=== PATIENT | male | born 1955 | race Caucasian/White ===

== ENCOUNTER 2020-04-15 11:55 | Observation (INO) ==
[2020-04-15 12:34] LABS: Basophils # 0.1 K/mcL (0.0-0.2); Basophils % 0.7 %; Eosinophils # 0.1 K/mcL (0.0-0.6); Eosinophils % 1.6 %; Hematocrit 43.4 % (37.5-50.1); Hemoglobin 14.5 g/dL (12.9-16.9); Immature Granulocytes % 0.5 % (0-4); Lymphocytes # 1.4 K/mcL (0.6-4.6); Lymphocytes % 19.6 %; Mean Corpuscular HGB Conc 33.4 g/dL (31.6-35.5); Mean Corpuscular Hemoglobin 29.8 pg (28.0-33.3); Mean Corpuscular Volume 89.1 fL (83.0-100.0); Monocytes # 0.6 K/mcL (0.0-1.3); Monocytes % 8.3 %; Neutrophils # 5.1 K/mcL (1.6-8.9); Platelet Count 232 K/mcL (140-400); Red Blood Count 4.87 M/mcL (4.19-5.50); Red Cell Distribution Width 12.5 % (11.5-14.5); Segmented Neutrophils % 69.3 %; White Blood Count 7.3 K/mcL (4.3-11.1)
[2020-04-15 12:39] LABS: INR 1.5; Prothrombin Time 17.3 Seconds (9.4-12.1)
[2020-04-15 13:02] LABS: BUN/Creatinine Ratio 16 (6-26); Blood Urea Nitrogen 42 mg/dL (8-23); Calcium 9.2 mg/dL (8.6-10.3); Carbon Dioxide 27 mEq/L (23-29); Chloride 100 mEq/L (98-107); Glucose 187 mg/dL (70-105); Lipase 52 Units/L (11-82); Osmolality,Calculated 301 (280-300); Potassium 3.5 mEq/L (3.5-5.1); Sodium 138 mEq/L (136-145); Troponin I < 0.03 ng/mL (< 0.04); eGFR For African Americans 31 (> 60); eGFR For Non-African Americans 25 (> 60)
[2020-04-15] MEDS ORDERED: Aspirin 325 MG TABLET PO ONE (14:10)
[2020-04-15] MEDS ORDERED: Naloxone 0.4 MG/ML INJ IVP PRN (14:17)
[2020-04-15] MEDS ORDERED: D5% in Water 1,000 ML IVC PRN (14:27)
[2020-04-15] MEDS ORDERED: Dextrose Gel 15 GM/37.5 ML TUBE PO PRN ×2 (14:27)
[2020-04-15] MEDS ORDERED: *HR* Dextrose 50 % in Water (Vial) 50 ML VIAL IVP PRN (14:27)
[2020-04-15 14:46] LABS: Estimated Average Glucose 232 mg/dl; Hemoglobin A1C 9.7 %
[2020-04-15] MEDS ORDERED: Perflutren Lipid Microsphere 1.3 ML in 0.9 % Sodium Chloride 8.7 ML IVP PRN (15:11)
[2020-04-15] MEDS: Insulin LISPRO 300 UNITS/3 ML VIAL SUBQ SCH (16:13)
[2020-04-15] MEDS: Insulin DETEMIR 100 UNIT/ML X5UNITS SUBQ SCH (21:44)
[2020-04-15] MEDS ORDERED: *HR* HYDROcodone/Acet 5/325 mg TABLET PO PRN (21:59)
[2020-04-16 00:54] LABS: Basophils % 0.5 %; Eosinophils # 0.1 K/mcL (0.0-0.6); Hematocrit 39.3 % (37.5-50.1); Hemoglobin 13.3 g/dL (12.9-16.9); Immature Granulocytes % 0.4 % (0-4); Lymphocytes # 1.5 K/mcL (0.6-4.6); Lymphocytes % 20.6 %; Mean Corpuscular HGB Conc 33.8 g/dL (31.6-35.5); Mean Corpuscular Volume 88.5 fL (83.0-100.0); Mean Platelet Volume 10.1 fL (9.4-12.4); Monocytes # 0.7 K/mcL (0.0-1.3); Platelet Count 208 K/mcL (140-400); Red Blood Count 4.44 M/mcL (4.19-5.50); Red Cell Distribution Width 12.4 % (11.5-14.5); Segmented Neutrophils % 68.5 %; White Blood Count 7.3 K/mcL (4.3-11.1)
[2020-04-16 01:07] LABS: Calcium 8.7 mg/dL (8.6-10.3); Chol/HDL Ratio 6.8 (0-4.9); Potassium 3.5 mEq/L (3.5-5.1)
[2020-04-16] MEDS ORDERED: Regadenoson 0.4 MG/5 ML SYRINGE IVP ONE (07:55)
[2020-04-16] MEDS ORDERED: Aspirin Enteric Coated 81 MG Tablet PO SCH (09:00)
[2020-04-16] MEDS ORDERED: amLODIPine 5 MG TABLET PO SCH (09:00)
[2020-04-16] MEDS: Insulin LISPRO 300 UNITS/3 ML VIAL SUBQ SCH ×2 (09:06→12:46)
[2020-04-16] MEDS: Insulin DETEMIR 100 UNIT/ML X5UNITS SUBQ SCH (10:26)
[2020-04-16 10:56] VITALS: BP 174/80
[2020-04-16] MEDS ORDERED: Metoprolol 100 MG TABLET PO SCH (12:00)
[2020-04-16] MEDS ORDERED: Isosorbide MONOnitrate (24 HR) 30 MG TAB.ER.24H PO SCH (14:15)
[2020-04-16] MEDS ORDERED: *HR* Rivaroxaban 15 MG TABLET PO SCH (17:00)
== END 2020-04-16 15:29 | disposition home or self-care (01) ==
LOC: 3BNU 11:55 → EMEROOARM 11:55 → SUATTDRO 14:19 → 3BNU 15:38
PROVIDERS: ADMIT Internal Medicine; ATTEND Internal Medicine

== ENCOUNTER 2021-12-07 16:54 | Inpatient (IN) ==
[2021-12-07 20:26] LABS: Hematocrit 31.2 % (37.5-50.1); Hemoglobin 10.2 g/dL (12.9-16.9); Mean Corpuscular HGB Conc 32.7 g/dL (31.6-35.5); Mean Corpuscular Hemoglobin 31.2 pg (28.0-33.3); Mean Corpuscular Volume 95.4 fL (83.0-100.0); Platelet Count 184 K/mcL (140-400); Red Blood Count 3.27 M/mcL (4.19-5.50); Red Cell Distribution Width 14.1 % (11.5-14.5); White Blood Count 7.3 K/mcL (4.3-11.1)
[2021-12-07 20:33] LABS: INR 1.1; Prothrombin Time 12.2 Seconds (9.4-12.1)
[2021-12-07 20:36] LABS: Activated Partial Thrombo Time 29.2 Seconds (26.0-36.0)
[2021-12-07 20:41] LABS: Eosinophils # 0.4 K/mcL (0.0-0.6); Lymphocytes # 1.3 K/mcL (0.6-4.6); Monocytes # 0.2 K/mcL (0.0-1.3); Neutrophils # 5.3 K/mcL (1.6-8.9)
[2021-12-07 20:48] LABS: Alanine Aminotransferase 11 Units/L (7-52); Albumin 2.8 g/dL (3.5-5.7); Albumin/Globulin Ratio 1.1 (1.1-2.2); Alkaline Phosphatase 84 Units/L (34-104); Aspartate Amino Transferase 10 Units/L (13-39); BUN/Creatinine Ratio 19 (6-26); Bilirubin,Indirect 0.3 mg/dL (0.0-1.0); Bilirubin,Total 0.3 mg/dL (0.3-1.0); Blood Urea Nitrogen 84 mg/dL (8-23); Carbon Dioxide 21 mEq/L (23-29); Chloride 107 mEq/L (98-107); Globulin 2.5 g/dL (2.4-3.5); Glucose 358 mg/dL (70-105); Osmolality,Calculated 324 (280-300); Potassium 4.5 mEq/L (3.5-5.1); Sodium 137 mEq/L (136-145); Total Protein 5.3 g/dL (6.4-8.9)
[2021-12-07 20:49] LABS: Troponin I < 0.03 ng/mL (< 0.04)
[2021-12-07] MEDS ORDERED: Furosemide 40 MG/4 ML VIAL IVP ONE (23:55)
[2021-12-08] MEDS ORDERED: Naloxone 0.4 MG/ML INJ IVP PRN (00:53)
[2021-12-08] MEDS ORDERED: Melatonin 3 MG TABLET PO PRN (00:53)
[2021-12-08 02:25] LABS: Basophils # 0.1 K/mcL (0.0-0.2); Basophils % 0.7 %; Eosinophils # 0.2 K/mcL (0.0-0.6); Eosinophils % 2.9 %; Hematocrit 32.9 % (37.5-50.1); Hemoglobin 10.9 g/dL (12.9-16.9); Immature Granulocytes % 5.9 % (0-4); Lymphocytes # 0.8 K/mcL (0.6-4.6); Lymphocytes % 10.5 %; Mean Corpuscular HGB Conc 33.1 g/dL (31.6-35.5); Mean Corpuscular Hemoglobin 31.5 pg (28.0-33.3); Mean Corpuscular Volume 95.1 fL (83.0-100.0); Mean Platelet Volume 10.4 fL (9.4-12.4); Monocytes # 0.6 K/mcL (0.0-1.3); Monocytes % 8.6 %; Neutrophils # 5.3 K/mcL (1.6-8.9); Platelet Count 204 K/mcL (140-400); Red Blood Count 3.46 M/mcL (4.19-5.50); Red Cell Distribution Width 14.3 % (11.5-14.5); Segmented Neutrophils % 71.4 %; White Blood Count 7.4 K/mcL (4.3-11.1)
[2021-12-08 02:42] LABS: INR 1.1; Prothrombin Time 12.2 Seconds (9.4-12.1)
[2021-12-08 02:44] LABS: Albumin/Globulin Ratio 1.2 (1.1-2.2); Bilirubin,Total 0.3 mg/dL (0.3-1.0); Calcium 8.5 mg/dL (8.6-10.3); Globulin 2.6 g/dL (2.4-3.5); Magnesium 1.8 mg/dL (1.6-2.6); Potassium 4.4 mEq/L (3.5-5.1); Total Protein 5.6 g/dL (6.4-8.9)
[2021-12-08 02:45] LABS: Activated Partial Thrombo Time 32.2 Seconds (26.0-36.0)
[2021-12-08] MEDS ORDERED: Dextrose Gel 15 GM/37.5 ML TUBE PO PRN ×2 (07:01)
[2021-12-08] MEDS ORDERED: D5% in Water 1,000 ML IVC PRN (07:01)
[2021-12-08] MEDS ORDERED: *HR* Dextrose 50 % in Water (Syg) 50 ML SYRINGE IVP PRN (07:01)
[2021-12-08] MEDS ORDERED: Insulin LISPRO 300 UNITS/3 ML VIAL SUBQ SCH (08:00)
[2021-12-08] MEDS: Albumin 25% 25gram/100mL 25 GM/100 ML IV.SOLN IVPB SCH ×2 (09:47→20:12)
[2021-12-08] MEDS: Aspirin Enteric Coated 81 MG Tablet PO SCH (09:48)
[2021-12-08] MEDS: carvediloL 25 MG TABLET PO SCH ×2 (09:48→17:40)
[2021-12-08] MEDS: Apixaban 5 MG TABLET PO SCH ×2 (09:48→20:12)
[2021-12-08] MEDS: NIFEdipine XL (24 HR) 60 MG TAB.ER.24 PO SCH (09:48)
[2021-12-08] MEDS: Renal Vitamin 1 CAP CAPSULE PO SCH (09:48)
[2021-12-08] MEDS: Insulin DETEMIR 100 UNIT/ML X5UNITS SUBQ SCH (09:49)
[2021-12-08] MEDS: Insulin LISPRO 300 UNITS/3 ML VIAL SUBQ SCH ×6 (09:49→17:39)
[2021-12-08 11:07] LABS: Estimated Average Glucose 295 mg/dl; Hemoglobin A1C 11.9 %
[2021-12-08] MEDS: Bumetanide 1 MG/4 ML VIAL IVP SCH ×3 (12:17→21:50)
[2021-12-08] MEDS: *HR* HYDROcodone/Acet 5/325 mg TABLET PO PRN ×2 (12:18→20:02)
[2021-12-08 17:16] LABS: Bacteria,Urine Few per hpf (None-Few); Bilirubin,Urine Negative (Negative); Blood,Urine Trace (Negative); Clarity,Urine Clear (Clear); Color,Urine Colorless (Yellow); Glucose,Urine (UA) 300 mg/dL (Normal); Ketones,Urine Negative (Negative); Leukocyte Esterase,Urine Negative (Negative); Nitrite,Urine Negative (Negative); PH,Urine 6.5 pH Units (5.0-8.0); Protein,Urine >=300 mg/dL (Neg-Trace); RBC,Urine 0-3 per hpf (0-3); Specific Gravity,Urine 1.011 (1.010-1.025); Squamous Epithelial Cell,Urine Few per hpf (None-Few); Urobilinogen,Urine Normal (Normal); WBC,Urine 0-3 per hpf (0-3)
[2021-12-08 18:02] LABS: Potassium,Urine 31.3 mEq/L; Protein/Creatinine Ratio,Urine 15.43 mg/mg (0.00-0.20); Sodium, Urine 85.9 mEq/L
[2021-12-09 07:12] LABS: Basophils % 0.5 %; Eosinophils # 0.2 K/mcL (0.0-0.6); Eosinophils % 3.1 %; Hematocrit 28.8 % (37.5-50.1); Hemoglobin 9.7 g/dL (12.9-16.9); Immature Granulocytes % 2.5 % (0-4); Lymphocytes # 0.6 K/mcL (0.6-4.6); Lymphocytes % 10.3 %; Mean Corpuscular HGB Conc 33.7 g/dL (31.6-35.5); Mean Corpuscular Hemoglobin 31.5 pg (28.0-33.3); Mean Corpuscular Volume 93.5 fL (83.0-100.0); Mean Platelet Volume 10.1 fL (9.4-12.4); Monocytes # 0.5 K/mcL (0.0-1.3); Monocytes % 8.6 %; Neutrophils # 4.5 K/mcL (1.6-8.9); Platelet Count 163 K/mcL (140-400); Red Blood Count 3.08 M/mcL (4.19-5.50); Red Cell Distribution Width 13.9 % (11.5-14.5)
[2021-12-09 07:34] LABS: Albumin 3.1 g/dL (3.5-5.7); Calcium 8.5 mg/dL (8.6-10.3); Magnesium 1.8 mg/dL (1.6-2.6); Phosphorous 6.6 mg/dL (2.7-4.5); Potassium 3.8 mEq/L (3.5-5.1)
[2021-12-09] MEDS: Insulin LISPRO 300 UNITS/3 ML VIAL SUBQ SCH ×6 (07:52→17:21)
[2021-12-09] MEDS: Bumetanide 1 MG/4 ML VIAL IVP SCH ×2 (08:38→21:24)
[2021-12-09] MEDS: Albumin 25% 25gram/100mL 25 GM/100 ML IV.SOLN IVPB SCH ×2 (08:38→19:40)
[2021-12-09] MEDS: Renal Vitamin 1 CAP CAPSULE PO SCH (08:38)
[2021-12-09] MEDS: Aspirin Enteric Coated 81 MG Tablet PO SCH (08:38)
[2021-12-09] MEDS: NIFEdipine XL (24 HR) 60 MG TAB.ER.24 PO SCH (08:38)
[2021-12-09] MEDS: carvediloL 25 MG TABLET PO SCH ×2 (08:38→17:20)
[2021-12-09] MEDS: Apixaban 5 MG TABLET PO SCH ×2 (08:38→19:40)
[2021-12-09] MEDS: Insulin DETEMIR 100 UNIT/ML X5UNITS SUBQ SCH (08:39)
[2021-12-09 10:15] LABS: Complement C3 108 mg/dL (87-200)
[2021-12-09] MEDS: Ondansetron 4 MG/2 ML VIAL IVP PRN (21:24)
[2021-12-09] MEDS ORDERED: Pantoprazole 40 MG VIAL IVP ONE (21:42)
[2021-12-09] MEDS: Acetaminophen 325 MG TABLET PO PRN (22:31)
[2021-12-10 05:55] LABS: Basophils % 0.2 %; Eosinophils # 0.1 K/mcL (0.0-0.6); Eosinophils % 2.4 %; Hematocrit 28.1 % (37.5-50.1); Hemoglobin 9.2 g/dL (12.9-16.9); Immature Granulocytes % 1.3 % (0-4); Lymphocytes # 0.8 K/mcL (0.6-4.6); Lymphocytes % 14.5 %; Mean Corpuscular HGB Conc 32.7 g/dL (31.6-35.5); Mean Corpuscular Hemoglobin 30.6 pg (28.0-33.3); Mean Corpuscular Volume 93.4 fL (83.0-100.0); Mean Platelet Volume 10.4 fL (9.4-12.4); Monocytes # 0.6 K/mcL (0.0-1.3); Monocytes % 10.2 %; Neutrophils # 3.9 K/mcL (1.6-8.9); Platelet Count 159 K/mcL (140-400); Red Blood Count 3.01 M/mcL (4.19-5.50); Segmented Neutrophils % 71.4 %; White Blood Count 5.5 K/mcL (4.3-11.1)
[2021-12-10 06:19] LABS: Calcium 8.5 mg/dL (8.6-10.3); Potassium 4.1 mEq/L (3.5-5.1)
[2021-12-10] MEDS: Insulin LISPRO 300 UNITS/3 ML VIAL SUBQ SCH ×6 (07:35→17:27)
[2021-12-10] MEDS: Aspirin Enteric Coated 81 MG Tablet PO SCH (08:47)
[2021-12-10] MEDS: carvediloL 25 MG TABLET PO SCH ×2 (08:47→17:27)
[2021-12-10] MEDS: Insulin DETEMIR 100 UNIT/ML X5UNITS SUBQ SCH (08:47)
[2021-12-10] MEDS: Albumin 25% 25gram/100mL 25 GM/100 ML IV.SOLN IVPB SCH ×2 (08:47→20:24)
[2021-12-10] MEDS: Apixaban 5 MG TABLET PO SCH ×2 (08:47→20:26)
[2021-12-10] MEDS: Renal Vitamin 1 CAP CAPSULE PO SCH (08:47)
[2021-12-10] MEDS: NIFEdipine XL (24 HR) 60 MG TAB.ER.24 PO SCH (08:47)
[2021-12-10] MEDS: Bumetanide 1 MG/4 ML VIAL IVP SCH (10:57)
[2021-12-10] MEDS: Acetaminophen 325 MG TABLET PO PRN ×2 (12:28→20:32)
[2021-12-10] MEDS: Ondansetron 4 MG/2 ML VIAL IVP PRN (20:33)
[2021-12-11] MEDS: Bumetanide 1 MG/4 ML VIAL IVP SCH (00:44)
[2021-12-11 01:42] LABS: Hematocrit 26.8 % (37.5-50.1); Hemoglobin 8.8 g/dL (12.9-16.9); Mean Corpuscular HGB Conc 32.8 g/dL (31.6-35.5); Mean Corpuscular Hemoglobin 30.7 pg (28.0-33.3); Mean Corpuscular Volume 93.4 fL (83.0-100.0); Mean Platelet Volume 10.2 fL (9.4-12.4); Platelet Count 142 K/mcL (140-400); Red Blood Count 2.87 M/mcL (4.19-5.50); Red Cell Distribution Width 13.7 % (11.5-14.5)
[2021-12-11 02:01] LABS: Calcium 8.5 mg/dL (8.6-10.3); Magnesium 1.8 mg/dL (1.6-2.6); Phosphorous 6.5 mg/dL (2.7-4.5); Potassium 4.1 mEq/L (3.5-5.1)
[2021-12-11] MEDS: Insulin LISPRO 300 UNITS/3 ML VIAL SUBQ SCH ×6 (08:18→17:42)
[2021-12-11] MEDS: carvediloL 25 MG TABLET PO SCH ×2 (08:20→17:53)
[2021-12-11] MEDS: Apixaban 5 MG TABLET PO SCH ×2 (08:20→20:44)
[2021-12-11] MEDS: Insulin DETEMIR 100 UNIT/ML X5UNITS SUBQ SCH (08:20)
[2021-12-11] MEDS: NIFEdipine XL (24 HR) 60 MG TAB.ER.24 PO SCH (08:20)
[2021-12-11] MEDS: Aspirin Enteric Coated 81 MG Tablet PO SCH (08:20)
[2021-12-11] MEDS: Renal Vitamin 1 CAP CAPSULE PO SCH (08:20)
[2021-12-11 09:06] LABS: Albumin 3.5 g/dL (3.5-5.7)
[2021-12-11] MEDS: Albumin 25% 25gram/100mL 25 GM/100 ML IV.SOLN IVPB SCH ×3 (09:24→20:45)
[2021-12-11] MEDS ORDERED: Furosemide 40 MG/4 ML VIAL IVP ONE (10:43)
[2021-12-11] MEDS ORDERED: Albumin 25% 25gram/100mL 25 GM/100 ML IV.SOLN IVPB SCH (13:15)
[2021-12-11] MEDS ORDERED: Sennosides/Docusate Sodium TABLET PO PRN (14:42)
[2021-12-11] MEDS: Acetaminophen 325 MG TABLET PO PRN (17:53)
[2021-12-11] MEDS: Furosemide 40 MG/4 ML VIAL IVP SCH ×2 (17:54→22:17)
[2021-12-11] MEDS ORDERED: Furosemide 40 MG/4 ML VIAL IVP SCH (21:00)
[2021-12-12 04:52] LABS: Hematocrit 27.3 % (37.5-50.1); Mean Corpuscular Hemoglobin 30.6 pg (28.0-33.3); Mean Corpuscular Volume 92.9 fL (83.0-100.0); Mean Platelet Volume 10.2 fL (9.4-12.4); Platelet Count 144 K/mcL (140-400); Red Blood Count 2.94 M/mcL (4.19-5.50); Red Cell Distribution Width 13.7 % (11.5-14.5); White Blood Count 5.8 K/mcL (4.3-11.1)
[2021-12-12 05:08] LABS: Calcium 8.9 mg/dL (8.6-10.3); Potassium 3.9 mEq/L (3.5-5.1)
[2021-12-12 07:15] LABS: Kappa Qnt Free Light Chains 77.27 mg/L (3.30-19.40); Lambda Qnt Free Light Chains 38.33 mg/L (5.71-26.30)
[2021-12-12 07:31] LABS: ANA IgG by ELISA NONE DETECTED (None Detected)
[2021-12-12] MEDS: Insulin LISPRO 300 UNITS/3 ML VIAL SUBQ SCH ×6 (08:51→17:03)
[2021-12-12] MEDS: NIFEdipine XL (24 HR) 60 MG TAB.ER.24 PO SCH (08:51)
[2021-12-12] MEDS: Apixaban 5 MG TABLET PO SCH (08:51)
[2021-12-12] MEDS: Insulin DETEMIR 100 UNIT/ML X5UNITS SUBQ SCH (08:51)
[2021-12-12] MEDS: Albumin 25% 25gram/100mL 25 GM/100 ML IV.SOLN IVPB SCH ×2 (08:51→20:32)
[2021-12-12] MEDS: Renal Vitamin 1 CAP CAPSULE PO SCH (08:52)
[2021-12-12] MEDS: DilTIAZem CD (24hr) 120 MG CAP.ER.24H PO SCH (08:52)
[2021-12-12] MEDS: carvediloL 25 MG TABLET PO SCH ×2 (08:52→17:05)
[2021-12-12] MEDS: Aspirin Enteric Coated 81 MG Tablet PO SCH (08:52)
[2021-12-12] MEDS ORDERED: NON-FORMULARY MEDICATION 1 EACH EACH (Pravastatin Sodium [Pravachol] 80 MG Tablet) PO SCH (09:00)
[2021-12-12] MEDS: Furosemide 40 MG/4 ML VIAL IVP SCH ×2 (11:02→21:39)
[2021-12-12] MEDS ORDERED: diazePAM 10 MG/2 ML SYRINGE IVP ONE (16:37)
[2021-12-12 16:46] LABS: ABG Base Excess -5 mEq/L (-2 to 3); ABG HCO3 19 mEq/L (21-27); ABG Oxygen Saturation 92 % (95-98); ABG PCO2 30 mmHg (35-45); ABG PO2 61 mmHg (85-104); ABG TCO2 20 mEq/L (20-26)
[2021-12-12] MEDS ORDERED: Furosemide 40 MG/4 ML VIAL IVP ONE (17:08)
[2021-12-12 17:21] LABS: ANCA IFA Titer <1:20 (<1:20)
[2021-12-12] MEDS ORDERED: Furosemide 120 MG in 0.9 % Sodium Chloride 50 ML IVPB ONE (17:30)
[2021-12-12] MEDS ORDERED: metOLazone 5 MG TABLET PO ONE (18:45)
[2021-12-12] MEDS: Mirtazapine 15 MG TABLET PO SCH (20:31)
[2021-12-12] MEDS: Acetaminophen 325 MG TABLET PO PRN (20:44)
[2021-12-13 02:14] LABS: Hematocrit 26.3 % (37.5-50.1); Hemoglobin 8.8 g/dL (12.9-16.9); Mean Corpuscular HGB Conc 33.5 g/dL (31.6-35.5); Mean Corpuscular Hemoglobin 31.1 pg (28.0-33.3); Mean Corpuscular Volume 92.9 fL (83.0-100.0); Mean Platelet Volume 10.3 fL (9.4-12.4); Platelet Count 141 K/mcL (140-400); Red Blood Count 2.83 M/mcL (4.19-5.50); Red Cell Distribution Width 13.5 % (11.5-14.5); White Blood Count 5.7 K/mcL (4.3-11.1)
[2021-12-13 02:23] LABS: INR 1.6
[2021-12-13 02:25] LABS: Activated Partial Thrombo Time 32.1 Seconds (26.0-36.0)
[2021-12-13 02:33] LABS: Magnesium 1.9 mg/dL (1.6-2.6); Phosphorous 7.3 mg/dL (2.7-4.5); Potassium 3.9 mEq/L (3.5-5.1)
[2021-12-13 05:47] LABS: Beta Globulin (PEP) 0.51 g/dL (0.48-1.10)
[2021-12-13] MEDS: Insulin LISPRO 300 UNITS/3 ML VIAL SUBQ SCH ×6 (08:00→17:16)
[2021-12-13] MEDS: Albumin 25% 25gram/100mL 25 GM/100 ML IV.SOLN IVPB SCH ×2 (08:00→20:35)
[2021-12-13] MEDS ORDERED: Heparin 1,000 UNITS/500 mL 500 ML ONE (08:18)
[2021-12-13] MEDS ORDERED: 0.9 % Sodium Chloride 250 ML IVC PRN (08:27)
[2021-12-13] MEDS ORDERED: 0.9 % Sodium Chloride 2,000 ML PRIME SCH (08:30)
[2021-12-13] MEDS ORDERED: *HR* Heparin 10,000 UNIT/10 ML VIAL IV PRN (08:41)
[2021-12-13] MEDS ORDERED: *HR* Heparin 5,000 UNIT/ML VIAL ONE (08:41)
[2021-12-13] MEDS: Insulin DETEMIR 100 UNIT/ML X5UNITS SUBQ SCH (09:29)
[2021-12-13 10:08] LABS: ANCA IFA Pattern NONE DETECTED (None Detected); Serine Protease-3 Antibody 0 AU/mL (0-19)
[2021-12-13 10:19] LABS: IFE Reflexed IFE Done; Immunoglobulin A 123 mg/dL (68-408); Immunoglobulin G 321 mg/dL (768-1632); Immunoglobulin M 34 mg/dL (35-263)
[2021-12-13] MEDS: Furosemide 40 MG/4 ML VIAL IVP SCH (11:00)
[2021-12-13 12:15] LABS: Hepatitis B Surface Antibody < 3.10 mIU/mL
[2021-12-13 12:25] LABS: Hepatitis B Surface Antigen Nonreactive (Nonreactive)
[2021-12-13] MEDS: carvediloL 25 MG TABLET PO SCH ×2 (13:32→17:15)
[2021-12-13] MEDS: Aspirin Enteric Coated 81 MG Tablet PO SCH (14:10)
[2021-12-13] MEDS: DilTIAZem CD (24hr) 120 MG CAP.ER.24H PO SCH (14:10)
[2021-12-13] MEDS: Acetaminophen 325 MG TABLET PO PRN ×2 (14:11→20:44)
[2021-12-13] MEDS: Renal Vitamin 1 CAP CAPSULE PO SCH (14:11)
[2021-12-13] MEDS: Mirtazapine 15 MG TABLET PO SCH (20:42)
[2021-12-14] MEDS: Furosemide 40 MG/4 ML VIAL IVP SCH ×2 (01:21→12:30)
[2021-12-14 02:10] LABS: Hematocrit 25.7 % (37.5-50.1); Hemoglobin 8.5 g/dL (12.9-16.9); Mean Corpuscular HGB Conc 33.1 g/dL (31.6-35.5); Mean Corpuscular Hemoglobin 30.6 pg (28.0-33.3); Mean Corpuscular Volume 92.4 fL (83.0-100.0); Mean Platelet Volume 10.3 fL (9.4-12.4); Platelet Count 143 K/mcL (140-400); Red Blood Count 2.78 M/mcL (4.19-5.50); Red Cell Distribution Width 13.3 % (11.5-14.5); White Blood Count 5.7 K/mcL (4.3-11.1)
[2021-12-14 02:31] LABS: Calcium 8.6 mg/dL (8.6-10.3); Magnesium 1.8 mg/dL (1.6-2.6); Phosphorous 5.6 mg/dL (2.7-4.5); Potassium 3.6 mEq/L (3.5-5.1)
[2021-12-14] MEDS: Insulin LISPRO 300 UNITS/3 ML VIAL SUBQ SCH ×6 (08:32→18:56)
[2021-12-14] MEDS: Albumin 25% 25gram/100mL 25 GM/100 ML IV.SOLN IVPB SCH (08:34)
[2021-12-14] MEDS: Insulin DETEMIR 100 UNIT/ML X5UNITS SUBQ SCH (08:39)
[2021-12-14] MEDS: Aspirin Enteric Coated 81 MG Tablet PO SCH (08:39)
[2021-12-14] MEDS: Renal Vitamin 1 CAP CAPSULE PO SCH (08:44)
[2021-12-14] MEDS ORDERED: 0.9 % Sodium Chloride 250 ML IVC PRN (08:55)
[2021-12-14] MEDS ORDERED: *HR* Heparin 10,000 UNIT/10 ML VIAL IV PRN (08:55)
[2021-12-14] MEDS: Acetaminophen 325 MG TABLET PO PRN (09:00)
[2021-12-14] MEDS: carvediloL 25 MG TABLET PO SCH ×2 (12:28→18:56)
[2021-12-14] MEDS: *HR* HYDROcodone/Acet 5/325 mg TABLET PO PRN (15:36)
[2021-12-14 16:37] LABS: VBG Ionized Calcium 1.06 mmol/L (1.15-1.35)
[2021-12-14] MEDS: DilTIAZem CD (24hr) 120 MG CAP.ER.24H PO SCH (17:08)
[2021-12-14] MEDS: Mirtazapine 15 MG TABLET PO SCH (20:46)
[2021-12-15 06:09] LABS: Hematocrit 28.4 % (37.5-50.1); Hemoglobin 9.4 g/dL (12.9-16.9); Mean Corpuscular HGB Conc 33.1 g/dL (31.6-35.5); Mean Corpuscular Hemoglobin 30.6 pg (28.0-33.3); Mean Corpuscular Volume 92.5 fL (83.0-100.0); Mean Platelet Volume 9.9 fL (9.4-12.4); Platelet Count 157 K/mcL (140-400); Red Blood Count 3.07 M/mcL (4.19-5.50); Red Cell Distribution Width 13.4 % (11.5-14.5); White Blood Count 5.5 K/mcL (4.3-11.1)
[2021-12-15 06:31] LABS: Magnesium 1.8 mg/dL (1.6-2.6); Phosphorous 4.6 mg/dL (2.7-4.5); Potassium 3.4 mEq/L (3.5-5.1)
[2021-12-15] MEDS ORDERED: 0.9 % Sodium Chloride 250 ML IVC PRN (07:41)
[2021-12-15] MEDS ORDERED: 0.9 % Sodium Chloride 2,000 ML PRIME SCH (07:45)
[2021-12-15] MEDS: Renal Vitamin 1 CAP CAPSULE PO SCH (08:46)
[2021-12-15] MEDS: Aspirin Enteric Coated 81 MG Tablet PO SCH (08:46)
[2021-12-15] MEDS: carvediloL 25 MG TABLET PO SCH ×2 (08:48→17:09)
[2021-12-15] MEDS: DilTIAZem CD (24hr) 120 MG CAP.ER.24H PO SCH (08:49)
[2021-12-15] MEDS: Insulin LISPRO 300 UNITS/3 ML VIAL SUBQ SCH ×6 (08:49→17:21)
[2021-12-15] MEDS: Insulin DETEMIR 100 UNIT/ML X5UNITS SUBQ SCH (08:51)
[2021-12-15] MEDS ORDERED: *HR* Heparin 10,000 UNIT/10 ML VIAL IV PRN (13:11)
[2021-12-15] MEDS: Ondansetron 4 MG/2 ML VIAL IVP PRN (19:29)
[2021-12-15] MEDS: Mirtazapine 15 MG TABLET PO SCH (23:25)
[2021-12-15] MEDS: hydrALAZINE 25 MG TABLET PO SCH (23:25)
[2021-12-16] MEDS: DilTIAZem CD (24hr) 120 MG CAP.ER.24H PO SCH (02:47)
[2021-12-16 03:09] LABS: Basophils % 0.5 %; Eosinophils # 0.1 K/mcL (0.0-0.6); Eosinophils % 2.1 %; Hematocrit 30.3 % (37.5-50.1); Hemoglobin 9.9 g/dL (12.9-16.9); Immature Granulocytes % 0.5 % (0-4); Lymphocytes # 0.8 K/mcL (0.6-4.6); Lymphocytes % 13.5 %; Mean Corpuscular HGB Conc 32.7 g/dL (31.6-35.5); Mean Platelet Volume 9.5 fL (9.4-12.4); Monocytes # 0.7 K/mcL (0.0-1.3); Monocytes % 10.7 %; Neutrophils # 4.5 K/mcL (1.6-8.9); Platelet Count 146 K/mcL (140-400); Red Blood Count 3.19 M/mcL (4.19-5.50); Red Cell Distribution Width 13.2 % (11.5-14.5); Segmented Neutrophils % 72.7 %; White Blood Count 6.2 K/mcL (4.3-11.1)
[2021-12-16 03:28] LABS: Calcium 9.1 mg/dL (8.6-10.3); Potassium 3.5 mEq/L (3.5-5.1)
[2021-12-16] MEDS: Aspirin Enteric Coated 81 MG Tablet PO SCH (09:14)
[2021-12-16] MEDS: hydrALAZINE 25 MG TABLET PO SCH ×2 (09:14→20:11)
[2021-12-16] MEDS: Renal Vitamin 1 CAP CAPSULE PO SCH (09:15)
[2021-12-16] MEDS: Ondansetron 4 MG/2 ML VIAL IVP PRN (09:16)
[2021-12-16] MEDS: carvediloL 25 MG TABLET PO SCH ×2 (09:16→16:09)
[2021-12-16] MEDS: Insulin LISPRO 300 UNITS/3 ML VIAL SUBQ SCH ×6 (09:23→18:32)
[2021-12-16] MEDS: Insulin DETEMIR 100 UNIT/ML X5UNITS SUBQ SCH (09:25)
[2021-12-16] MEDS: Mirtazapine 15 MG TABLET PO SCH (20:10)
[2021-12-16] MEDS: Acetaminophen 325 MG TABLET PO PRN (20:10)
[2021-12-17 02:59] LABS: INR 1.2; Prothrombin Time 13.9 Seconds (9.4-12.1)
[2021-12-17 03:16] LABS: Calcium 9.2 mg/dL (8.6-10.3); Potassium 3.4 mEq/L (3.5-5.1)
[2021-12-17] MEDS ORDERED: 0.9 % Sodium Chloride 250 ML IVC PRN (07:32)
[2021-12-17] MEDS: Insulin LISPRO 300 UNITS/3 ML VIAL SUBQ SCH ×6 (07:36→18:35)
[2021-12-17] MEDS ORDERED: 0.9 % Sodium Chloride 2,000 ML PRIME SCH (07:45)
[2021-12-17] MEDS: Renal Vitamin 1 CAP CAPSULE PO SCH (08:18)
[2021-12-17] MEDS: hydrALAZINE 25 MG TABLET PO SCH ×2 (08:18→20:23)
[2021-12-17] MEDS: Aspirin Enteric Coated 81 MG Tablet PO SCH (08:19)
[2021-12-17] MEDS: DilTIAZem CD (24hr) 120 MG CAP.ER.24H PO SCH (08:19)
[2021-12-17] MEDS: carvediloL 25 MG TABLET PO SCH ×2 (08:19→18:32)
[2021-12-17] MEDS: Insulin DETEMIR 100 UNIT/ML X5UNITS SUBQ SCH (08:22)
[2021-12-17 18:57] LABS: Beta Globulin (PEP) 0.45 g/dL (0.48-1.10)
[2021-12-17] MEDS: Mirtazapine 15 MG TABLET PO SCH (20:23)
[2021-12-18 05:07] LABS: Magnesium 1.8 mg/dL (1.6-2.6)
[2021-12-18 05:08] LABS: Calcium 9.1 mg/dL (8.6-10.3); Potassium 3.7 mEq/L (3.5-5.1)
[2021-12-18] MEDS: Renal Vitamin 1 CAP CAPSULE PO SCH (08:23)
[2021-12-18] MEDS: Aspirin Enteric Coated 81 MG Tablet PO SCH (08:23)
[2021-12-18] MEDS: carvediloL 25 MG TABLET PO SCH ×2 (08:23→17:31)
[2021-12-18] MEDS: hydrALAZINE 25 MG TABLET PO SCH ×2 (08:23→20:53)
[2021-12-18] MEDS: DilTIAZem CD (24hr) 120 MG CAP.ER.24H PO SCH (08:23)
[2021-12-18] MEDS: Insulin DETEMIR 100 UNIT/ML X5UNITS SUBQ SCH (08:25)
[2021-12-18] MEDS: Insulin LISPRO 300 UNITS/3 ML VIAL SUBQ SCH ×6 (09:12→17:32)
[2021-12-18] MEDS ORDERED: Lidocaine/EPI 1:100k 1% 50 ML VIAL ONE (10:12)
[2021-12-18] MEDS ORDERED: Heparin 1,000 UNITS/500 mL 500 ML ONE (10:12)
[2021-12-18 10:45] LABS: IFE Reflexed IFE Done; Immunoglobulin A 95 mg/dL (68-408); Immunoglobulin G 256 mg/dL (768-1632); Immunoglobulin M 26 mg/dL (35-263)
[2021-12-18] MEDS ORDERED: *HR* FentaNYL (PF) 100 MCG/2 ML VIAL IVP ONE (11:12)
[2021-12-18] MEDS ORDERED: *HR* Heparin 5,000 UNIT/ML VIAL ONE (11:19)
[2021-12-18] MEDS ORDERED: 0.9 % Sodium Chloride 500 ML ONE (11:20)
[2021-12-18] MEDS ORDERED: Clindamycin 600 MG/50 ML 600 MG/50 ML IV.SOLN IVPB STA (11:20)
[2021-12-18] MEDS: Acetaminophen 325 MG TABLET PO PRN (13:30)
[2021-12-18] MEDS: Mirtazapine 15 MG TABLET PO SCH (20:53)
[2021-12-19 06:41] LABS: Basophils % 0.4 %; Eosinophils # 0.2 K/mcL (0.0-0.6); Eosinophils % 3.1 %; Hematocrit 28.4 % (37.5-50.1); Hemoglobin 9.5 g/dL (12.9-16.9); Immature Granulocytes % 0.6 % (0-4); Lymphocytes # 0.8 K/mcL (0.6-4.6); Lymphocytes % 14.9 %; Mean Corpuscular HGB Conc 33.5 g/dL (31.6-35.5); Mean Corpuscular Hemoglobin 31.6 pg (28.0-33.3); Mean Corpuscular Volume 94.4 fL (83.0-100.0); Mean Platelet Volume 10.3 fL (9.4-12.4); Monocytes # 0.4 K/mcL (0.0-1.3); Monocytes % 8.4 %; Neutrophils # 3.8 K/mcL (1.6-8.9); Platelet Count 166 K/mcL (140-400); Red Blood Count 3.01 M/mcL (4.19-5.50); Red Cell Distribution Width 13.2 % (11.5-14.5); Segmented Neutrophils % 72.6 %; White Blood Count 5.2 K/mcL (4.3-11.1)
[2021-12-19 07:05] LABS: Albumin 3.5 g/dL (3.5-5.7); Albumin/Globulin Ratio 1.7 (1.1-2.2); Bilirubin,Total 0.5 mg/dL (0.3-1.0); Calcium 9.2 mg/dL (8.6-10.3); Globulin 2.1 g/dL (2.4-3.5); Potassium 3.9 mEq/L (3.5-5.1); Total Protein 5.6 g/dL (6.4-8.9)
[2021-12-19] MEDS ORDERED: 0.9 % Sodium Chloride 250 ML IVC PRN (07:41)
[2021-12-19] MEDS ORDERED: 0.9 % Sodium Chloride 2,000 ML PRIME SCH (07:45)
[2021-12-19 07:46] VITALS: PULSE 104
[2021-12-19] MEDS: Insulin LISPRO 300 UNITS/3 ML VIAL SUBQ SCH ×4 (08:11→13:35)
[2021-12-19] MEDS: carvediloL 25 MG TABLET PO SCH ×2 (09:07→14:39)
[2021-12-19] MEDS: Aspirin Enteric Coated 81 MG Tablet PO SCH (09:08)
[2021-12-19] MEDS: hydrALAZINE 25 MG TABLET PO SCH (09:08)
[2021-12-19] MEDS: DilTIAZem CD (24hr) 120 MG CAP.ER.24H PO SCH ×2 (09:08→14:39)
[2021-12-19] MEDS: Renal Vitamin 1 CAP CAPSULE PO SCH (09:09)
[2021-12-19] MEDS ORDERED: *HR* Heparin 10,000 UNIT/10 ML VIAL IV PRN (09:10)
[2021-12-19 12:55] VITALS: BP 143/84; TEMP 98.1
[2021-12-19] MEDS: Insulin DETEMIR 100 UNIT/ML X5UNITS SUBQ SCH (13:35)
[2021-12-19 15:41] VITALS: O2SAT 97
== END 2021-12-19 17:45 | disposition home health service (06) | DRG 291 ==
LOC: 3ANU 16:54 → EMEROOARM 16:54 → SUATTDRO 12-08 00:30 → 3ANU 12-08 00:52 → SUATTDRO 12-08 18:03
PROVIDERS: ADMIT Internal Medicine; ATTEND Internal Medicine
PROC: IRPERMA (2021-12-18 12:00)